=== PATIENT | male | born 1950 | race Caucasian/White ===

== ENCOUNTER → 2023-08-01 | Outpatient (CLI) | payer MEDICARE, OTHER ==
[~2023-08-01] MED LIST: FENO145T27 PO; MET50T PO
[2023-08-01 10:16] LABS: Basophils # (auto) 0.1 10 ^3/uL (0-0.2); Basophils % (auto) 1.1 % (0.0-2.0); Eosinophils # (auto) 0.2 10 ^3/uL (0-0.8); Eosinophils % (auto) 2.8 % (0.0-7.0); Hematocrit 41.5 % (41.0-53.0); Hemoglobin 13.5 g/dL (13.5-17.5); Lymphocytes # (auto) 1.6 10 ^3/uL (0.4-5.4); Lymphocytes % (auto) 22.1 % (10.0-50.0); Mean Corpuscular Hemoglobin 29.8 pg (28.0-32.0); Mean Corpuscular Hgb Conc. 32.6 g/dL (32.0-36.0); Mean Corpuscular Volume 91.3 fL (80.0-100.0); Monocytes # (auto) 0.5 10 ^3/uL (0-1.3); Monocytes % (auto) 7.1 % (0.0-12.0); Neutrophils # (auto) 4.8 10 ^3/uL (1.6-8.6); Neutrophils % (auto) 66.9 % (37.0-80.0); Nucleated Red Blood Cells % 0.1 %; Red Blood Cells 4.54 10^6/uL (4.5-5.90); Red Cell Distribution Width 13.4 % (11.8-14.3); White Blood Cell 7.1 10^3/uL (4.4-10.8)
[2023-08-01 11:30] LABS: Alanine Aminotransferase 17 U/L (7-40); Alkaline Phosphatase 58 U/L (46-116); Anion Gap 8 (5-15); BUN/Creatinine Ratio 13.5 (10.0-20.0); Blood Urea Nitrogen 15 mg/dL (9-23); Calcium 10.3 mg/dL (8.5-10.1); Carbon Dioxide 28 mmol/L (20-30); Chloride 102 mmol/L (98-107); Glucose 100 mg/dL (74-106); Potassium 4.5 mmol/L (3.5-5.1); Sodium 138 mmol/L (136-145)
[2023-08-01 11:31] LABS: Albumin 4.7 g/dL (3.2-4.8); Aspartate Aminotransferase 24 U/L (13-40)
[2023-08-01 11:32] LABS: Bilirubin, Total 0.6 mg/dL (0.2-1.0); Total Protein 7.5 g/dL (5.7-8.2)
== END | disposition home or self-care (01) ==
LOC: LAB 09:51
PROVIDERS: ATTEND Internal Medicine
DX: I12.9 Hypertensive chronic kidney disease with stage 1 through stage 4 chronic kidney disease, or unspecified chronic kidney disease (principal); N18.2 Chronic kidney disease, stage 2 (mild); E78.5 Hyperlipidemia, unspecified
CPT/HCPCS: 36415; 80053; 85025; 85379

== ENCOUNTER 2023-08-02 10:51 | Inpatient (IN) | payer MEDICARE, OTHER ==
[~2023-08-02] VITALS: Ht 182.9 cm; Wt 85.9 kg
[2023-08-02 11:53] LABS: Basophils # (auto) 0.1 10 ^3/uL (0-0.2); Basophils % (auto) 0.8 % (0.0-2.0); Eosinophils # (auto) 0.2 10 ^3/uL (0-0.8); Eosinophils % (auto) 2.8 % (0.0-7.0); Hematocrit 41.7 % (41.0-53.0); Hemoglobin 13.7 g/dL (13.5-17.5); Lymphocytes # (auto) 1.7 10 ^3/uL (0.4-5.4); Lymphocytes % (auto) 23.5 % (10.0-50.0); Mean Corpuscular Hgb Conc. 32.8 g/dL (32.0-36.0); Mean Corpuscular Volume 91.5 fL (80.0-100.0); Monocytes # (auto) 0.5 10 ^3/uL (0-1.3); Monocytes % (auto) 7.6 % (0.0-12.0); Neutrophils # (auto) 4.6 10 ^3/uL (1.6-8.6); Neutrophils % (auto) 65.3 % (37.0-80.0); Red Blood Cells 4.56 10^6/uL (4.5-5.90); Red Cell Distribution Width 13.3 % (11.8-14.3); White Blood Cell 7.1 10^3/uL (4.4-10.8)
[2023-08-02] MEDS ORDERED: IOHEXOL 350 MG/ML 100ML IJ ONE (11:54)
[2023-08-02 12:03] LABS: Alanine Aminotransferase 14 U/L (7-40); Alkaline Phosphatase 57 U/L (46-116); Anion Gap 6 (5-15); Aspartate Aminotransferase 21 U/L (13-40); BUN/Creatinine Ratio 10.7 (10.0-20.0); Blood Urea Nitrogen 12 mg/dL (9-23); Calcium 9.9 mg/dL (8.7-10.4); Carbon Dioxide 29 mmol/L (20-30); Chloride 102 mmol/L (98-107); Glucose 97 mg/dL (74-106); Potassium 4.3 mmol/L (3.5-5.1); Sodium 137 mmol/L (136-145)
[2023-08-02 12:04] LABS: Albumin 4.6 g/dL (3.2-4.8); Bilirubin, Total 0.7 mg/dL (0.2-1.0); Total Protein 7.9 g/dL (5.7-8.2)
[2023-08-02] MEDS ORDERED: HEPARIN SODIUM (PORCINE) 5000 UNITS/ML 1ML VIAL IV ONE (14:00)
[2023-08-02] MEDS ORDERED: HEPARIN DRIP/D5W 100UNITS/ML 250 ML IV SCH (14:00)
[2023-08-02 14:12] LABS: Triglycerides 139 mg/dL (< 150)
[2023-08-02 14:13] LABS: LDL Cholesterol 111 mg/dL (< 100)
[2023-08-02 14:14] LABS: Cholesterol 163 mg/dL (< 200); HDL Cholesterol 33 mg/dL (40-59)
[2023-08-02] MEDS ORDERED: ONDANSETRON HCL 4 MG/2 ML VIAL IV PRN (16:00)
[2023-08-02] MEDS ORDERED: DOCUSATE SOD 100 MG CAP PO PRN (16:00)
[2023-08-02] MEDS ORDERED: MORPHINE SULFATE INJ 2 MG/ml SYRG IV PRN (16:00)
[2023-08-02 16:05] VITALS: PULSE 57; RESP 16; O2SAT 96
[2023-08-02] MEDS: SODIUM CHLOR 0.9% PF (SALINE LOCK) 10ML VIAL/SYR IV SCH (16:05)
[2023-08-02] MEDS: SODIUM CHLORIDE 0.9% 1,000 ML IV SCH (16:16)
[2023-08-02 16:36] LABS: INR 1.08 (0.9-1.15); Partial Thromboplastin Time 29.8 SEC (24.5-34.5); Prothrombin Time 11.3 sec (9.3-11.8)
[2023-08-02] MEDS: HEPARIN SODIUM (PORCINE) 5000 UNITS/ML 1ML VIAL IV ONE (18:53)
[2023-08-02] MEDS: HEPARIN DRIP/D5W 100UNITS/ML 250 ML IV SCH (18:54)
[2023-08-02 19:30] VITALS: PULSE 65; RESP 14; O2SAT 97
[2023-08-03] VITALS (7 sets, daily range): BP systolic 106–138; BP diastolic 66–77; PULSE 65–87; RESP 14–20; TEMP 97.8–98.6; O2SAT 94–98
[2023-08-03 01:44] LABS: INR 1.13 (0.9-1.15); Prothrombin Time 11.8 sec (9.3-11.8)
[2023-08-03 01:47] LABS: Partial Thromboplastin Time 113.4 SEC (24.5-34.5)
[2023-08-03 06:11] LABS: Basophils # (auto) 0.1 10 ^3/uL (0-0.2); Basophils % (auto) 1.1 % (0.0-2.0); Eosinophils # (auto) 0.3 10 ^3/uL (0-0.8); Eosinophils % (auto) 5.2 % (0.0-7.0); Hematocrit 38.9 % (41.0-53.0); Lymphocytes # (auto) 1.7 10 ^3/uL (0.4-5.4); Lymphocytes % (auto) 28.4 % (10.0-50.0); Mean Corpuscular Hemoglobin 30.2 pg (28.0-32.0); Mean Corpuscular Hgb Conc. 33.4 g/dL (32.0-36.0); Mean Corpuscular Volume 90.4 fL (80.0-100.0); Monocytes # (auto) 0.4 10 ^3/uL (0-1.3); Monocytes % (auto) 7.3 % (0.0-12.0); Neutrophils # (auto) 3.5 10 ^3/uL (1.6-8.6); Nucleated Red Blood Cells % 0.1 %; Red Cell Distribution Width 13.4 % (11.8-14.3); White Blood Cell 6.1 10^3/uL (4.4-10.8)
[2023-08-03 06:17] LABS: Alanine Aminotransferase 16 U/L (7-40); Albumin 4.2 g/dL (3.2-4.8); Alkaline Phosphatase 50 U/L (46-116); Anion Gap 7 (5-15); Aspartate Aminotransferase 26 U/L (13-40); BUN/Creatinine Ratio 15.5 (10.0-20.0); Bilirubin, Total 0.6 mg/dL (0.2-1.0); Blood Urea Nitrogen 15 mg/dL (9-23); Calcium 9.8 mg/dL (8.5-10.1); Carbon Dioxide 27 mmol/L (20-30); Chloride 105 mmol/L (98-107); Glucose 89 mg/dL (74-106); Potassium 4.2 mmol/L (3.5-5.1); Sodium 139 mmol/L (136-145); Total Protein 6.5 g/dL (5.7-8.2)
[2023-08-03] MEDS ORDERED: MET50T PO (06:56)
[2023-08-03] MEDS ORDERED: FENO145T27 PO (06:56)
[2023-08-03 09:37] LABS: INR 1.09 (0.9-1.15); Partial Thromboplastin Time 64.5 SEC (24.5-34.5); Prothrombin Time 11.4 sec (9.3-11.8)
[2023-08-03 15:36] LABS: INR 1.11 (0.9-1.15); Partial Thromboplastin Time 66.7 SEC (24.5-34.5); Prothrombin Time 11.6 sec (9.3-11.8)
[2023-08-03 21:13] LABS: INR 1.11 (0.9-1.15); Partial Thromboplastin Time 63.5 SEC (24.5-34.5); Prothrombin Time 11.6 sec (9.3-11.8)
[2023-08-03] MEDS: METOPROLOL TARTRATE 25 MG TAB PO SCH (22:41)
[2023-08-04 05:00] VITALS: BP 117/75; PULSE 67; RESP 18; TEMP 97.9; O2SAT 96
[2023-08-04 05:23] LABS: INR 1.08 (0.9-1.15); Prothrombin Time 11.3 sec (9.3-11.8)
[2023-08-04 08:00] VITALS: PULSE 75; RESP 16; O2SAT 100
[2023-08-04 08:54] VITALS: BP 125/84; PULSE 75; RESP 16; TEMP 97.9; O2SAT 100
[2023-08-04 17:00] VITALS: BP 112/68; PULSE 66; RESP 16; TEMP 97.5; O2SAT 97
[2023-08-04 20:00] VITALS: RESP 17; O2SAT 96
[2023-08-04 22:22] VITALS: BP 118/72; PULSE 75; RESP 17; TEMP 98.3; O2SAT 96
[2023-08-05] VITALS (7 sets, daily range): BP systolic 118–130; BP diastolic 68–79; PULSE 64–75; RESP 14–17; TEMP 97.8–98.3; O2SAT 95–96
[2023-08-05 07:14] LABS: INR 1.09 (0.9-1.15); Prothrombin Time 11.4 sec (9.3-11.8)
[2023-08-05] MEDS: APIXABAN 5 MG TAB PO SCH (09:54)
[2023-08-06 05:18] VITALS: BP 129/75; PULSE 70; RESP 18; TEMP 98; O2SAT 95
[2023-08-06 08:00] VITALS: PULSE 74; RESP 16; O2SAT 95
[2023-08-06 09:00] VITALS: BP 130/63; PULSE 74; RESP 16; TEMP 97.5; O2SAT 95
[2023-08-06] MEDS ORDERED: APIX5TAB PO (09:09)
[2023-08-06 10:41] VITALS: BP 129/75; PULSE 70; RESP 18; TEMP 98.2; O2SAT 95
== END 2023-08-06 11:00 | disposition home or self-care (01) | DRG 299 ==
LOC: ER 10:51 → TELE 16:03 → TELE-CENTR 08-03 05:58
PROVIDERS: ADMIT Nurse Practitioner Family; ATTEND Family Medicine
DX: I82.411 Acute embolism and thrombosis of right femoral vein (principal); I26.99 Other pulmonary embolism without acute cor pulmonale; I82.432 Acute embolism and thrombosis of left popliteal vein; I10 Essential (primary) hypertension; E78.5 Hyperlipidemia, unspecified; Z90.49 Acquired absence of other specified parts of digestive tract
CPT/HCPCS: 36415; 71275; 80053; 80061; 84484; 85025; 85379; 85610; 85730; 93005; 93306; 93970; G0378

== ENCOUNTER → 2023-12-02 | Outpatient (CLI) | payer MEDICARE, OTHER ==
[~2023-12-02] MED LIST changes: +APIX5TAB PO
== END | disposition home or self-care (01) ==
LOC: XYW 07:36
PROVIDERS: ATTEND Student in an Organized Health Care Education/Training Program
DX: I11.9 Hypertensive heart disease without heart failure (principal)
CPT/HCPCS: 93306